=== PATIENT | male | born 1945 | race African-American/Black ===

== ENCOUNTER → 2024-03-31 14:15 | Outpatient (REF) | payer MEDICARE, SELFPAY | LOC: PAVMRI 14:15 | PROVIDERS: ATTENDING PHYSICIAN Specialist; FAMILY PHYSICIAN Internal Medicine | DX: M54.2 Cervicalgia (principal); M25.511 Pain in right shoulder | CPT/HCPCS: 72141; 73221 ==

== ENCOUNTER 2024-06-13 16:26 | Inpatient (IN) | payer MEDICARE, SELFPAY ==
[2024-06-13] VITALS (11 sets, daily range): BP systolic 117–149; BP diastolic 70–104; BMI 26.8
[2024-06-13 12:42] LABS: Hematocrit 42.7 % (39.0-52.0); Hemoglobin 14.8 g/dL (13.0-18.0); Mean Corp Hgb Conc. 34.7 g/dL (33.0-37.0); Mean Corpuscular Hgb 29.7 pg (27.0-31.0); Mean Corpuscular Volume 85.6 fL (80.0-94.0); Mean Platelet Volume 9.6 fL (7.4-10.4); Platelet Count 258 10^3/uL (130-400); Red Blood Cell Count 4.99 10^6/uL (4.70-6.10); Red Cell Dist. Width 13.5 % (11.5-14.5)
[2024-06-13 12:48] LABS: ALT (SGPT) 22 U/L (0-50); AST (SGOT) 37 U/L (17-59); Albumin 4.6 g/dl (3.5-5.0); Alkaline Phosphatase 100 U/L (38-126); Blood Urea Nitrogen 17 mg/dl (9-20); Calcium 9.6 mg/dl (8.4-10.2); Carbon Dioxide 28 mmol/L (22-30); Chloride 103 mmol/L (98-107); Estimated Creatinine Clearance 75 ml/min; Glucose 109 mg/dl (70-99); Sodium 139 mmol/L (135-145); Total Bilirubin 0.4 mg/dl (0.2-1.3); Total Protein 7.6 g/dl (6.3-8.2); eGFR > 60.00
[2024-06-13 13:04] LABS: Troponin I < 0.012 ng/ml
--- NOTE | 2024-06-13 13:21 | ED.GENMED ---
History of Present Illness
General
Chief Complaint: Chest Problem
Time Seen by Provider: 06/13/24 12:10
History of Present Illness
History of Present Illness:
79-year-old male with history of hypertension and diabetes presenting to the emergency department for multiple complaints. Patient reports for the past year he has been having substernal chest pain with exertion. Last night he had an episode where
pain was worse and he 'felt like he was having a heart attack'. He notes that he had an outpatient stress test 4 months ago through his PCP, reportedly normal. Pain is only present with exertion, denies pain at rest. Denies difficulty breathing.
Denies radiation of pain. Additionally notes that he has been having constipation for the past year. He has been using milk of magnesia, MiraLAX, stool softeners and has to strain to have a bowel movement. He is due for colonoscopy within the
year. Denies associate abdominal pain or vomiting. Additional complaint is right arm pain which has been going on for 7 months. Notes that he has had x-ray and MRI imaging, unremarkable, had cortisone injections by orthopedics. Pain is worse
with abduction. Denies numbness or tingling to the extremity or weakness. Additional complaint is left testicular pain which has been going on for 4 days. Denies any urinary complaints. Denies any injury to the testicular region. Denies
additional acute medical complaints
Past History
Past History
ED Past Medical History: HTN and Other (Insomnia, Sleep apnea)
ED Past Surgical History: Appendectomy
Social History
Tobacco: Non-smoker
Alcohol: Occasional
Drug: None
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
Living: other
Employment: Employed ([employer])
Family History
Family History: Other
Phy Exam
Physical Exam
Physical Exam:
General: Well-appearing, no clinical signs of dehydration, nontoxic and in no acute distress
HEENT: protecting airway
Neck: appears supple
CV: Normal heart rate, regular rhythm, no evidence of cyanosis
Resp: No accessory muscle use, no increased work of breathing, lungs clear to auscultation bilaterally
Abd: Soft and non-distended, no tenderness to palpation
Extremities: No deformities, no swelling, no erythema, pulses and sensation intact
Neuro: alert, no focal neurologic deficit
: No reproducible tenderness to the testicle, no swelling
Rectal: deferred
Psych: Normal affect
Skin: Intact
Scores
Heart Score for Chest Pain Patients
STEMI patient?: No
History: Moderately Suspicious
ECG: Nonspecific Repolarization
Age: >/= 65 years
Risk Factors: >/= 3 Risk Factors or History of CAD
Troponin: </= Normal Limit
Heart Score for Chest Pain Patients: 6
Heart Score Risk: 20.3% MACE over next 6 weeks
Course
Orders/Labs/Results
Orders:
Orders
06/13/24 Lunch
NPO
Allow oral meds: Yes
Allow clear liquids: No
06/13/24 11:51
ECG [Electrocardiogram (*1)] Urgent
Reason for Study: Chest Pain
EKG- Treatment ONCE
06/13/24 12:19
Complete Blood Count/With Diff Urgent
Comprehensive Metabolic Panel Urgent
Glycohemoglobin (HgbA1c) Urgent
Troponin I Urgent
06/13/24 12:38
Urinalysis Reflex To Culture Urgent
US Scrotum Urgent
Comment:
Reason For Exam: L-teticular pain
06/13/24 14:01
Echo 2D MMode Color/Doppler Routine
Reason for Study: Chest pain, abnormal EKG
06/13/24 14:20
Aspirin Chewable [Low Strength Aspirin] 324 mg PO NOW STA
06/13/24 14:41
Troponin I Routine
06/13/24 14:51
Add On- LAB Routine
Tests Added?: Hgba1c
06/13/24 15:00
EKG [Electrocardiogram (*1)] Routine
Reason for Study: Chest Pain
Comment: To be done with troponin at 15:00
06/14/24 06:00
Lipid Profile [Cardiovascular Evaluation] IN AM
Abnormal Lab Results
06/13/24
12:19
Neutrophils % 28.1 L %
(42.2-75.2)
Lymphocytes % 61.7 H %
(20.5-51.1)
Glucose 109 H mg/dl
(70-99)
06/13/24 12:19
06/13/24 12:19
Vital Signs
Initial and Last Documented VS:
Initial Vital Signs
Temp Pulse Resp BP Pulse Ox
98.5 F 71 20 144/83 99
06/13/24 11:47 06/13/24 11:47 06/13/24 11:47 06/13/24 11:47 06/13/24 11:47
Last Documented Vital Signs
Temp Pulse Resp BP Pulse Ox
98.5 F 72 21 144/83 97
06/13/24 11:47 06/13/24 13:45 06/13/24 13:45 06/13/24 11:47 06/13/24 13:45
MDM/Problems Addressed
MDM/Problems Addressed:
79-year-old male with history of hypertension hyperlipidemia presenting primarily for chest pain, and additional complaints of constipation, right arm pain, testicular pain. Vital signs are normal.
On exam, patient is well-appearing, no acute distress. Benign cardiac and pulmonary exam. On examination of the abdomen, no focal tenderness. No deformity to the right upper extremity, no neurovascular compromise, no erythema or warmth. No
significant abnormality to the testicular region. Regarding multiple complaints, primary complaint is chest pain. Patient without active chest pain, however concerning story, reports chest pain with exertion. Patient does have EKG changes from
prior as well as cardiac risk factors. For this reason we will obtain laboratory analysis including troponin. Regarding constipation, no tenderness to the abdomen without concern for any significant obstruction or blockage. Patient is due for a
colonoscopy in a year, which I advised he obtain to ensure no underlying malignancy. Regarding right upper extremity pain, no weakness, no neurovascular compromise. Recent MRI imaging, being followed by orthopedics. Do not feel patient requires
any advanced imaging or additional workup for his pain. Regarding testicular pain, will screen with scrotal ultrasound and urinalysis.
13:40 -given abnormal EKG and symptoms, did discuss cardiology. Cardiology MARBELLA to bedside. Initial troponin within normal limits.
14:55 - Discussed with cardiology, concern for chronic progressive angina, recommending catheterization today. Advising medicine admission with cardiac catheterization. Patient agreeable to plan.
*EKG
Interpreted by ED Provider?: Yes
EKG Intrepretation Date: 06/13/24
EKG Intrepretation Time: 13:25
Interpretation: abnormal
Comparison EKG: changes noted (02/18/18)
Heart Rate: 65
Rate: normal
Rhythm: sinus
[place]: normal axis
Interval: normal interval
QRS Pattern: normal QRS
Ischemia: other (ST changes V3-V4)
*Critical Care Note
Total Time (30-74mins, 75-104mins- exclusive of procedures): Not Applicable
ED Attending Note
-
Portions of this chart may have been created with voice recognition software.� Occasional wrong word or��sound alike� substitutions may have occurred due to the inherent limitations of voice recognition software.
Discharge Plan
Departure
Prescriptions:
No Action
amlodipine 5 mg Tablet
5 mg PO DAILY
Jardiance 10 mg Tablet
10 mg PO DAILY
lactulose [Constulose] 10 gram/15 mL solution
20 g PO BID Qty: 473 0RF
Referrals:
Oli Jeffery MD [Family Provider] -
Interventions
Interventions:
*Risk Screen - Suicide Last Done: 06/13/24 13:53
*General Assessment Last Done: 06/13/24 13:53
ED- Fall Risk Assessment Last Done: 06/13/24 13:35
*ED COVID-19 Vaccine History Last Done: 06/13/24 13:53
ED- Cardiac Assessment Last Done: 06/13/24 13:35
ED- Pulmonary Assessment Last Done: 06/13/24 13:35
Discharge Date and Time
Print Language: GREENLANDIC
[2024-06-13 13:27] LABS: % Basophils 0.6 % (0-2); % Eosinophils 1.4 % (0-6); % Lymphocytes 61.7 % (20.5-51.1); % Monocytes 8.2 % (1.7-9.3); % Neutrophils 28.1 % (42.2-75.2); Absolute Eosinophils 0.1 10^3/uL (0-0.7); Absolute Lymphocytes 3.1 10^3/uL (1.2-3.4); Absolute Monocytes 0.4 10^3/uL (0.1-0.6); Absolute Neutrophils 1.4 10^3/uL (1.4-6.5); Nucleated Red Blood Cells % 0 % (-)
--- NOTE | 2024-06-13 13:43 | CON.CAR ---
Addendum entered and electronically signed by Bridger Dumont MD 06/13/24 15:01:
I saw and examined the patient.
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 Symptoms are now limiting him from taking his walks. He had what he reports as a negative stress test in
[facility]. Given new EKG changes and progressive symptoms I do not favor another stress test or empiric medical therapy. I think he will benefit from cardiac cath and revascularization. I will be very surprised if he does not have
obstructive CAD. He has chronic left shoulder pain and constipation and several days of scrotal discomfort. I discussed the case in detail with Dr. Quintero who has kindly agreed to proceed to cath. Fortunately the patient has not eaten since
early this morning.
Original Note:
Consultation
Consultation Request
Date/Time Consultation Requested: 06/13/2024 13:30
Date/Time Consultation Performed: 06/13/2024 13:40
Requesting Provider: Dr. Dutton
Performing Provider: VALE Agosto for Dr. Dumont
Reason for Consultation: Abnormal EKG with chest pain
Medical History
-
Chief Complaint: Chest pain
History of Present Illness:
Fr. Alexis Tam is a 79-year-old male (formerly known to Dr. Shipley), with hypertension, dyslipidemia, NIDDM, and right outs who presented to the emergency department with chest pressure, right shoulder pain, and testicular pain. Cardiology was
consulted to evaluate his chest discomfort. He has midsternal anterior chest discomfort with exertional activities. This does not radiate. He denies associated symptoms of nausea, diaphoresis, and dizziness. He also presented endorsing
constipation and right arm pain.
Past Medical History
Past Medical History: HTN, Hypercholesterolemia and NIDDM
Past Surgical History: Appendectomy and Orthopedic
Social History
Tobacco: Non-Smoker
Drug: None
Personal: Single
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
Family History
Family History: Reviewed & Not Pertinent
Allergies / Home Medications
Allergy/AdvReac Type Severity Reaction Status Date / Time
No Known Allergies Allergy Verified 06/13/24 11:49
�Medication �Instructions �Recorded �Confirmed �Type
amlodipine 5 mg tablet 5 mg PO DAILY 06/01/23 06/01/23 History
empagliflozin 10 mg tablet 10 mg PO DAILY 06/01/23 06/01/23 History
(Jardiance)
lactulose 10 gram/15 mL oral 20 g (30 mL) PO BID #473 mL 08/11/23 Rx
solution (Constulose)
Review of Systems
-
History Source: Patient
All other systems: Negative unless noted
Constitutional: No Symptoms
EENT: No Symptoms
Respiratory: No Symptoms
Cardiac: Chest Pain
Abdomen/GI: Constipated
: Other (Testicular pain)
Musculoskeletal: Joint Pain (right shoulder)
Skin: No Symptoms
Neurological: No Symptoms
Endocrine: No Symptoms
Hematologic/Lymphatic: No Symptoms
Physical Exam
Vital Signs
Temp Pulse Resp BP Pulse Ox
98.5 F 71 20 144/83 99
06/13/24 11:47 06/13/24 11:47 06/13/24 11:47 06/13/24 11:47 06/13/24 11:47
Lab Results
06/13/24 12:19
06/13/24 12:19
Troponin I < 0.012 ng/ml 06/13/24 12:19
Physical Exam
General: Well Developed, Well Nourished, No Apparent Distress and Comfortable
HEENT: Normocephalic, Anicteric and Moist Mucous Membranes
Respiratory: Clear and Non Labored Respirations
Cardiac: S1/S2 and Regular Rhythm
Breast: Deferred by me
GI: Soft, Non Tender, Non Distended and Normal Bowel Sounds
Rectal: Deferred by Provider
Genito-urinary: No Costovertebral Tender
Musculoskeletal: No Clubbing, No Cyanosis and No Edema
Skin: Warm and Dry
Neuro: AO x 3
Hematologic/Lymphatic: No Lymphadenopathy
Psych: Calm
Impression / Plan
-
BACKGROUND: 79M with HTN, HLD, and diabetes who presented with exertional chest pressure, testicular pain, constipation, and right shoulder pain
Chest pressure
-Midsternal anterior chest pressure with exertional activities
-He endorses recent ETT but did not have any pain on the treadmill
-Initial troponin <0.012, EKG with anterior T wave abnormality
-Echocardiogram
-Ischemic evaluation timing to be determined
Testicular pain, per primary service
Constipation, per primary service
Right shoulder pain, cortisone shot given by orthopedics in December
Hypertension, stable on amlodipine
Dyslipidemia, fasting lipid panel in a.m.
Type 2 diabetes mellitus
Data Reviewed
-
EKG: Report Reviewed by me (Sinus rhythm, anterior T wave abnormality, rate 65)
Labs: Labs Reviewed by me
Old Records: Reviewed
[2024-06-13] MEDS: LOW STRENGTH ASPIRIN 324 MG PO (14:34)
[2024-06-13 15:30] LABS: Urine Albumin Negative (Neg - Trace); Urine Bilirubin Negative (Negative); Urine Character Clear (Clear); Urine Color Straw; Urine Glucose 3+ (Negative); Urine Ketone Negative (Negative); Urine Leukocyte Negative (Negative); Urine Nitrite Negative (Negative); Urine Occult Blood Negative (Negative); Urine Urobilinogen Negative (Neg - 1+)
--- NOTE | 2024-06-13 15:49 | HPS.HSE ---
Family Physician
-
Family Physician: Oli Jeffery MD
Chief Complaint
-
Chest pain
History of Present Illness
Patient is 79 years old male with history of hypertension and diabetes who presents to the emergency room with progressive exertional chest pain. Patient describes his chest pain as midsternal pressure-like worsening with exertion over the past few
months. Patient reports negative stress test recently at [facility]. He denies any syncope, palpitations. Pain does not radiate to the extremities. Patient reports pain in the right shoulder over the last few weeks with abnormal MRI and
recent orthopedic consult with steroid injection to the right shoulder with no significant relief of pain. In addition patient complains of persistent constipation. Denies any nausea or vomiting no other upper gastrointestinal symptoms. He has
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 In addition patient complains of a left sided scrotal discomfort.
Medical History
Past Medical History
Past Medical History: Reports HTN, Hypercholesterolemia and NIDDM; Denies CAD
Past Surgical History: Reports None
Social History
Tobacco: Non-smoker
Alcohol: None
Drug: None
Living: With Family
Family History
Family History: Not pertinent
Allergies / Home Medications
Allergies reflects when Allergies were last updated in [facility].
Home Medications with original date entered in [facility]
Allergy/Medication List:
Allergies
Allergy/AdvReac Type Severity Reaction Status Date / Time
No Known Allergies Allergy Verified 06/13/24 11:49
Home Medications
amlodipine 5 mg tablet 5 mg PO DAILY 06/01/23
empagliflozin 10 mg tablet (Jardiance) 10 mg PO DAILY 06/01/23
cholecalciferol (vitamin D3) 50 mcg (2,000 unit) tablet (Vitamin D3) 50 mcg PO NOON 06/13/24
finasteride 5 mg tablet 5 mg PO DAILY 06/13/24
peg 400-propylene glycol (PF) 0.4 %-0.3 % eye drops in a dropperette (Systane (PF)) 1 drp BOTH EYES Q6HPRN PRN dry eyes 06/13/24
therapeutic multivitamin 1 tab PO NOON 06/13/24
vitamin B complex 1 tab PO NOON 06/13/24
Review of Systems
-
A 12 point ROS was completed and negative except as noted: Yes
Cardiac: Reports See HPI
Abdomen/GI: Reports See HPI
: Reports See HPI
Physical Exam
Vital Signs
Vital Signs
Temp Pulse Resp BP Pulse Ox
98.5 F 63 15 128/99 97
06/13/24 11:47 06/13/24 15:00 06/13/24 15:00 06/13/24 15:00 06/13/24 15:00
Physical Exam
General: Well Developed, Well Nourished and No Apparent Distress
HEENT: NormoCephalic, Moist mucous membranes and Atraumatic
Respiratory: Clear
Cardiac: S1/S2 and Regular Rhythm; No Murmur or Rub
GI: Soft, Non Tender, Non Distended and Normal Bowel Sounds; No Organomegaly
Rectal: Deferred by Provider
Musculoskeletal: No Clubbing, No Cyanosis and No Edema
Skin: No Rash
Neuro: Nonfocal/grossly intact
Laboratory Results
-
06/13/24 12:19
06/13/24 12:19
Laboratory Results
Total Bilirubin 0.4 mg/dl (0.2-1.3) 06/13/24 12:19
AST 37 U/L (17-59) 06/13/24 12:19
ALT 22 U/L (0-50) 06/13/24 12:19
Alkaline Phosphatase 100 U/L (38-126) 06/13/24 12:19
Troponin I Cancelled 06/13/24 14:41
Impression/Plan
-
IMPRESSION:
Exertional chest pain with clinical concern for acute coronary syndrome, accelerated angina.
Right shoulder pain.
Left scrotal discomfort
Constipation
Other conditions:
Essential hypertension
Diabetes
Dyslipidemia.
BPH.
PLAN:
Exertional chest pain
ECG with lateral T wave abnormalities
Troponin negative.
Clinical concern for accelerated angina
Cardiology input appreciated
Echocardiogram with
Urgent cardiac catheterization
Lipid profile
Essential hypertension
On amlodipine prior to presentation
Monitor blood pressure trend
Chronic constipation
Most recent colonoscopy with adenomatous polyps.
Due for repeat.
Benign abdominal exam
Not anemic.
Initiate MiraLAX and Colace.
Will need outpatient follow-up
Right shoulder pain
Recent MRI with partial-thickness supraspinatus tendon tearing with underlying tendinosis of the rotator cuff tendons
Status post steroid injection
Follow-up with orthopedics
Left scrotal discomfort
Ultrasound consistent with left-sided varicocele
BPH on finasteride.
Reports urinary retention.
Check UA.
Bladder scan.
Continue finasteride and consider addition of Flomax
[2024-06-13 16:33] LABS: Glycohemoglobin (HgbA1c) 6.8 % (4.0-5.6)
[2024-06-13] MEDS: MIRALAX PO (17:03)
--- NOTE | 2024-06-13 17:04 | ITS.CL.CATH ---
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
Cardiac Catheterization
Procedure Report:
CARDIAC CATHETERIZATION REPORT
Date of Procedure: 06/13/2024
Referring: Dr. Paramjit Dumont MD
INDICATION: stable angina, abnormal ECG
PROCEDURE:
1. Left heart catheterization.
2. Coronary angiography.
ACCESS:
6 [place] right radial artery
CATHETERS:
1. 6 [place] JR4
2. 6 [place] JL3
HEMODYNAMIC DATA
LV 117/2 (EDP 10) mmHg
AO 123/81 (100) mmHg
CORONARY ANGIOGRAPH
Dominance: right
LM: short and normal
LAD: large vessel that gives rise to a large D1 and moderate-caliber D2 before wrapping around the apex. There is a severe 99% stenosis in the mid-LAD involving the takeoff of D2. The D2 itself has 80-90% disease proximally with moderate disease
extending at least 20-30 mm distally. There is TIMI2 flow in the distal LAD. Some [id number] filling is noted in the apical LAD.
LCx: large vessel that gives rise to a large OM1 and small OM2. There are trivial luminal irregularities.
RCA: large vessel that gives rise to a moderate-caliber RPDA and small RPL system. There are mild luminal irregularities.
Closure Device: TR band
Radiation (mGy): 288.14
DAP (cm2.Gy): 26.6776
Fluoroscopy time (minutes): 2.9
CONCLUSIONS
1. Severe single vessel coronary artery disease in a right dominant system
2. Normal LV filling pressure and no aortic stenosis.
RECOMMENDATIONS:
1. Expectant management after cardiac catheterization via right radial approach
2. Echocardiogram
3. Aggressive secondary prevention or coronary artery disease with ASA and high intensity statin
4. Medical treatment of chronic stable angina with maximally tolerated anti-anginal therapy
5. Consideration for revascularization of LAD/diagonal if continued angina despite optimal medical therapy. This would best be accomplished with a crush-based dedicated bifurcation technique.
Copy to: Dr. Paramjit Dumont
Signed: Migue Quintero MD, PhD
[2024-06-13 17:53] LABS: Glucose - Point of Care 78 mg/dl (70-99)
[2024-06-13] MEDS: LIPITOR 80 MG PO (18:35)
[2024-06-13 18:43] LABS: HDL Cholesterol 50 mg/dl; LDL Cholesterol, Calculated 77 mg/dl; Total Cholesterol 142 mg/dl (50-199); Triglyceride 77 mg/dl (10-149); Very Low Density Lipoprotein 15 mg/dl (0-30)
[2024-06-13] MEDS: COLACE 100 MG PO (19:30)
--- NOTE | 2024-06-13 20:37 | PTCARENOTE ---
Pt received at change of shift. Pt.seen and assessed in room. Pt. AOx3 VS WNL. Tele reading NSR. TR band removed at 1925 with no bleeding, gauze and tegaderm placed. Education taught about right extremity limitations. No complaints of pain at this
time. Continuing to monitor the pt.
[2024-06-13 21:28] LABS: Glucose - Point of Care 87 mg/dl (70-99)
[2024-06-14] VITALS: PULSE 64
[2024-06-14 03:15] VITALS: PULSE 61
[2024-06-14 04:32] VITALS: BP 135/75
[2024-06-14 04:42] VITALS: BMI 26.1
[2024-06-14 05:18] LABS: % Basophils 0.4 % (0-2); % Eosinophils 1.9 % (0-6); % Immature Granulocytes 0.2 % (0-0.5); % Neutrophils 40.5 % (42.2-75.2); Absolute Eosinophils 0.1 10^3/uL (0-0.7); Absolute Lymphocytes 2.6 10^3/uL (1.2-3.4); Absolute Monocytes 0.4 10^3/uL (0.1-0.6); Absolute Neutrophils 2.1 10^3/uL (1.4-6.5); Hematocrit 44.7 % (39.0-52.0); Hemoglobin 15.5 g/dL (13.0-18.0); Mean Corp Hgb Conc. 34.7 g/dL (33.0-37.0); Mean Corpuscular Hgb 29.9 pg (27.0-31.0); Mean Corpuscular Volume 86.3 fL (80.0-94.0); Mean Platelet Volume 9.3 fL (7.4-10.4); Nucleated Red Blood Cells % 0 % (-); Platelet Count 229 10^3/uL (130-400); Red Blood Cell Count 5.18 10^6/uL (4.70-6.10); Red Cell Dist. Width 13.4 % (11.5-14.5); White Blood Cell Count 5.2 10^3/uL (4.8-10.8)
[2024-06-14 05:40] LABS: Blood Urea Nitrogen 15 mg/dl (9-20); Calcium 9.5 mg/dl (8.4-10.2); Carbon Dioxide 24 mmol/L (22-30); Chloride 105 mmol/L (98-107); Estimated Creatinine Clearance 75 ml/min; Glucose 77 mg/dl (70-99); Potassium 3.9 mmol/L (3.5-5.1); Sodium 138 mmol/L (135-145); eGFR > 60.00
[2024-06-14 07:14] VITALS: BP 135/81
[2024-06-14 07:19] LABS: Glucose - Point of Care 75 mg/dl (70-99)
--- NOTE | 2024-06-14 08:08 | W.PN.CD ---
Today's Communication / Plan
-
will assess tolerance to imdur/metop this AM, then ok for discharge home
Impression / Plan
-
BACKGROUND: 79M with HTN, HLD, and diabetes who presented with exertional chest pressure, found to have severe LAD/diagonal disease on coronary angiography.
ACS
CAD
-Midsternal anterior chest pressure with exertional activities for a year
-troponin negative, ECG with anterior TWIs
-Echocardiogram with normal EF - together with normal troponin suggests chronicity of LAD lesion with time for collateral formation and compensation
-cath with severe mid-LAD stenosis involving diagonal branch with apical LAD supplied by left to left collaterals, radial site cdi
-asa, high intensity statin
-plan for aggressive anti-anginal medication with PCI to LAD/diag if fails medical therapy - will start low dose imdur and metoprolol this AM, monitor for tolerance, and plan to discharge in afternoon with outpatient follow up with Dr. Dumont to
further titrate medications
Hypertension, stable on amlodipine, will monitor with addition of metop/imdur
Dyslipidemia, LDL 77, will initiate high intensity statin for goal LDL<70
Type 2 diabetes mellitus, cont. Jardiance as outpatient
Physical Exam
Vital Signs/Labs
Vital Signs
Temp Pulse Resp BP Pulse Ox
36.6 C 70 18 135/75 99
06/14/24 07:11 06/14/24 05:45 06/14/24 07:11 06/14/24 04:32 06/14/24 07:11
06/13/24 06/14/24 06/15/24
06:59 06:59 06:59
Actual Weight 77.9 kg
06/14/24 04:39
06/14/24 04:39
Triglycerides Cancelled 06/13/24 16:15
LDL Cholesterol, Calc Cancelled 06/13/24 16:15
VLDL Cholesterol, Calc Cancelled 06/13/24 16:15
HDL Cholesterol Cancelled 06/13/24 16:15
LAB Results
06/13/24 06/13/24 06/13/24
12:19 14:41 15:09
Troponin I < 0.012 Cancelled Cancelled
Physical Exam
Constitutional: No acute distress, Comfortable and Confusion
Cardiovascular: Rhythm & rate is regular, Pedal edema is absent and JVD pressure is normal
Respiratory: Respiratory effort normal
GI: Soft and Distention absent
Neuro/Psych: Alert, Oriented and AO x 3
Other: Cath Site (cdi)
Data Reviewed
-
Date of Service: June 14, 2024
Medical Decision Making: Reviewed Test Results and Test Interpretation
EKG: Tracing Personally Visualized and interpreted
Echo: Tracing Personally Visualized and interpreted
Labs: Labs Reviewed by me
[2024-06-14] MEDS: IMDUR (EXTENDED RELEASE) 30 MG PO (08:26)
[2024-06-14] MEDS: JARDIANCE 10 MG PO (08:26)
[2024-06-14] MEDS: COLACE 100 MG PO (08:26)
[2024-06-14] MEDS: LOW STRENGTH ASPIRIN 81 MG PO (08:29)
[2024-06-14] MEDS: NORVASC 10 MG PO (08:29)
[2024-06-14] MEDS: PROSCAR 5 MG PO (08:29)
[2024-06-14] MEDS: MIRALAX 17 GRAMS PO (08:29)
[2024-06-14] MEDS: TOPROL XL 12.5 MG PO (08:30)
--- NOTE | 2024-06-14 09:46 | CM ---
Reviewed chart. Met with Mr. Espinoza to review discharge plans. He states prior to admission he resides alone in a fourth floor condo with an elevator. He states he prefers to use the stairs. He states prior to admission he was independent with
ambulation and adls. He states he has a CPAP Machine at home and no other DME in the home. He states he has a prescription plan and uses [facility]. Medical work-up in progress. The discharge plan is to return home when medically stable.
--- NOTE | 2024-06-14 11:48 | W.DS.TRANS ---
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
-
Discharge Instructions:
Discharge Diagnosis/Procedures cardiac catheterization
CAD/accelerated angina
Diet Low Cholesterol,Diabetic, Carb Controlled
Instructions:
Stand-Alone Forms: DC Instructions- Cath/EP Lab
Changes to Home Medications: Yes
Discharge Medications:
DC Medications w/original date entered in [email or web address]
empagliflozin 10 mg tablet (Jardiance) 10 mg PO DAILY 06/01/23
cholecalciferol (vitamin D3) 50 mcg (2,000 unit) tablet (Vitamin D3) 50 mcg PO NOON 06/13/24
finasteride 5 mg tablet 5 mg PO DAILY 06/13/24
peg 400-propylene glycol (PF) 0.4 %-0.3 % eye drops in a dropperette (Systane (PF)) 1 drp BOTH EYES Q6HPRN PRN dry eyes 06/13/24
therapeutic multivitamin 1 tab PO NOON 06/13/24
vitamin B complex 1 tab PO NOON 06/13/24
amlodipine 10 mg tablet 10 mg PO DAILY #30 tabs 06/14/24
aspirin 81 mg chewable tablet 81 mg PO DAILY #30 tabs 06/14/24
atorvastatin 80 mg tablet 80 mg PO QPM #30 tabs 06/14/24
isosorbide mononitrate 30 mg tablet,extended release 24 hr 30 mg PO DAILY #30 tabs 06/14/24
metoprolol succinate 25 mg tablet,extended release 24 hr 12.5 mg (1/2 x 25 mg) PO DAILY #30 tabs 06/14/24
nitroglycerin 0.4 mg sublingual tablet 0.4 mg sublingual [id number] PRN chest pain #30 tabs 06/14/24
polyethylene glycol 3350 17 gram oral powder packet (HealthyLax) 17 g PO DAILY #100 ea 06/14/24
Home Medication Changes
All of above including increased amlodipine.
Pending Results: No
[2024-06-14 11:50] VITALS: BP 114/70
--- NOTE | 2024-06-14 14:30 | PTCARENOTE ---
Pt discharged, wanted to drive himself home. Explained to Pt that he was not to drive for 24 hrs post sedation. Pt expressed understanding. He agrees to have a friend drive him home.
== END 2024-06-14 15:01 | disposition home or self-care (01) | DRG 287 ==
LOC: IVU 16:26
PROVIDERS: Student in an Organized Health Care Education/Training Program; ADMITTING PHYSICIAN Internal Medicine; CONSULT PHYSICIAN Internal Medicine Cardiovascular Disease; EMERGENCY PHYSICIAN Student in an Organized Health Care Education/Training Program; FAMILY PHYSICIAN Internal Medicine
PROC: B2111ZZ Fluoroscopy of Multiple Coronary Arteries using Low Osmolar Contrast (ICD-10-PCS; 2024-06-13)
PROC: 4A023N7 Measurement of Cardiac Sampling and Pressure, Left Heart, Percutaneous Approach (ICD-10-PCS; 2024-06-13)
DX: I25.118 Atherosclerotic heart disease of native coronary artery with other forms of angina pectoris (principal); I24.9 Acute ischemic heart disease, unspecified; I10 Essential (primary) hypertension; E11.9 Type 2 diabetes mellitus without complications; S46.811A Strain of other muscles, fascia and tendons at shoulder and upper arm level, right arm, initial encounter; M25.511 Pain in right shoulder; I86.1 Scrotal varices; N50.82 Scrotal pain; E78.5 Hyperlipidemia, unspecified; K59.09 Other constipation; R33.8 Other retention of urine; N40.1 Benign prostatic hyperplasia with lower urinary tract symptoms; G47.30 Sleep apnea, unspecified; E78.00 Pure hypercholesterolemia, unspecified; G47.09 Other insomnia; M79.601 Pain in right arm; Z79.899 Other long term (current) drug therapy; Z86.010 Personal history of colon polyps
CPT/HCPCS: 76870; 80048; 80053; 80061; 81003; 82962; 83036; 84484; 85025; 93005; 93306; 93458; 93976; 94660; 99285; C1894; Q9967

== ENCOUNTER 2024-09-12 06:18 | Day surgery (SDC) | payer MEDICARE, SELFPAY ==
[2024-09-12] VITALS (16 sets, daily range): BP systolic 120–160; BP diastolic 62–86
[2024-09-12 07:11] LABS: Hematocrit 46.2 % (39.0-52.0); Hemoglobin 15.8 g/dL (13.0-18.0); Mean Corp Hgb Conc. 34.2 g/dL (33.0-37.0); Mean Corpuscular Volume 87.7 fL (80.0-94.0); Mean Platelet Volume 9.9 fL (7.4-10.4); Platelet Count 181 10^3/uL (130-400); Red Blood Cell Count 5.27 10^6/uL (4.70-6.10); Red Cell Dist. Width 13.6 % (11.5-14.5); White Blood Cell Count 5.6 10^3/uL (4.8-10.8)
[2024-09-12 07:13] LABS: Glucose - Point of Care 114 mg/dl (70-99)
[2024-09-12] MEDS: LOW STRENGTH ASPIRIN 81 MG PO (07:26)
[2024-09-12] MEDS: PLAVIX 600 MG PO (07:39)
[2024-09-12 08:27] LABS: ACT-LR - POC 277 Seconds (116-155)
[2024-09-12 09:39] LABS: ACT-LR - POC 371 Seconds (116-155)
[2024-09-12 10:02] LABS: ACT-LR - POC > 397 Seconds (116-155)
[2024-09-12 10:02] LABS: ACT-LR - POC > 397 Seconds (116-155)
[2024-09-12 10:08] LABS: ACT-LR - POC 374 Seconds (116-155)
[2024-09-12 11:13] LABS: ACT-LR - POC 281 Seconds (116-155)
[2024-09-12] MEDS: NSS 1000 IV (12:20)
[2024-09-12 12:39] LABS: Glucose - Point of Care 122 mg/dl (70-99)
--- NOTE | 2024-09-12 14:14 | PTCARENOTE ---
Report received from Mckayla from [facility]. Pts vitals stable on arrival to unit. SB on the monitor in the 50's. Pt with no complaints of pain or discomfort. R band intact with no hematoma noted. Advised pt bed of rest orders and right arm
restrictions. Call amaral given to patient. Friend Dave in the room visiting.
--- NOTE | 2024-09-12 14:56 | CM ---
Chart reviewed. Patient is independent of ADLS, lives alone in a apartment, elevator access, 0 DME. Plan is for the patient to return home. CM to follow
[2024-09-12 15:53] LABS: ACT-LR - POC > 397 Seconds (116-155)
--- NOTE | 2024-09-12 16:31 | PTCARENOTE ---
Aprox 1510 R band removed from right radial. 2x2 and tegaderm placed. No oozing or hematoma noted.
--- NOTE | 2024-09-12 17:21 | ITS.CL.PN ---
Denitrator - Procedure Note
Procedure
Procedure Note:
CARDIAC CATHETERIZATION REPORT
Date of Procedure: 09/12/2024
Indication: CCS Class III angina despite maximal medical therapy
PROCEDURE:
1. Left heart catheterization
2. Coronary angiography
3. IVUS of LAD
4. PCI with DAVID to LAD SUPERVISOR WHITE SUGAR
5. PCI with DAVID to D2
ACCESS: 7 [place] right radial artery (closed with TR band)
CATHETERS: 7 [place] EBU 3.5 guide catheter
HEMODYNAMIC DATA (mmHg)
LV 128/8 (EDP 22)
AO 131/68 (mean 89)
CORONARY ANGIOGRAPHY
Dominance: right
LM: large with minimal disease
LAD: large vessel giving rise to a large D1 and moderate caliber D2 before wrapping around the apex. There is a 100% stenosis in the mid-LAD just after the trifurcation of the dominant septal branch, the takeoff of the D2, and the continuation of
the LAD. The distal vessel appears to fill via bridging collaterals with evidence of retrograde flow at the distal cap. There is DORI 1 flow in the distal LAD. The SUPERVISOR WHITE SUGAR is short and straight without significant calcification but with ambiguous
proximal CAP (J-SUPERVISOR WHITE SUGAR 1). The D2 has a long 80% stenosis proximally with significant calcification.
LCx: large vessel giving rise to one dominant marginal branch
INTERVENTIONS - PCI to the LAD and D2
The left main was engaged with a 7F EBU 3.5 guide catheter. The decision was made to perform dedicated bifurcation stenting of the LAD/D2. A Runthrough wire was placed in the large septal as a cherelle wire but abandoned due to obstruction of distal
LAD flow. Wiring of the LAD was attempted with both the Runthrough wire and a Whisper wire without success. A 6F GuideLiner was inserted to allow lower volume contrast injections and add support. A Turnpike LP microcatheter was placed over the
Whisper wire, and with some difficulty, the Whisper wire was able to successfully cross the lesion. The wire was advanced into the distal LAD, followed by contrast injection to ensure intraluminal positioning. A Runthrough wire was placed in the D2.
Initial lesion preparation of the LAD was performed with serial inflation of a 2.0x12 balloon with full expansion. Angiography now demonstrated brisk DORI 3 flow to the distal LAD. Initial lesion preparation of the D2 was then attempted, but 2.0,
1.5, and 1.2 mm balloons were unable to cross the diagonal branch lesion, even with excellent GuideLiner support. Using the 1.2 mm balloon, angioplasty was performed at the proximal cap of the lesion to facilitate subsequent balloon passage without
success. Attempts were made to advance a cherelle wire down the D2 to facilitate wire cutting technique but due to dissection formation the second wire could not be advanced. Atherectomy was considered but would have required giving up the LAD wire and
would have been higher risk in the setting of vessel dissection in the D2. There remained DORI 3 flow in the D2, so a decision was made to covert to a provisional approach with rescue of the diagonal if needed. IVUS was performed of the LAD
demonstrating a 3.25 mm distal reference vessel and 4.5 mm proximal reference vessel with non-concentric calcification. The LAD was stented with a 3.5x30 mm Sorin Antlers DAVID DAVID taken to 12 josiane, followed by slight withdrawal of the stent balloon
and inflation to 16 josiane. POT was then performed with a 4.25x12 mm NC taken to 20 josiane. The diagonal still had TIMI3 flow but looked terrible with high grade stenosis and dissection proximally. The trapped D2 protection wire was removed. With
considerable difficulty, a fresh Whisper wire was used to rewire the D2 through stent struts. Surprisingly, the 1.2 mm balloon was then able to cross the stent struts and advanced distally past the lesion. The lesion was then serially dilated with
the 1.2 mm balloon, followed by a 2.0 mm balloon. A decision was made to perform TAP stenting of the diagonal. A 2.0x26 mm Sorin Antlers DAVID was advanced to the diagonal with minimal protrusion into the LAD. A 3.5x12 mm compliant balloon as advanced
distally over the LAD wire. The diagonal stent was deployed at nominal pressure, after which both the stent balloon and the 3.5 mm LAD balloon were pulled back to perform KBI with simultaneous synchronized inflation and deflation. Angiography
demonstrated an excellent result. IVUS of the LAD was performed and demonstrated slight undersizing of the proximal stent. POT was then performed with a 4.5x8 mm NC balloon. Final angiographic result was outstanding. The wire and guide were removed
and and a TR band placed. Due to high contrast usage, the patient was admitted for overnight observation and hydration.
RADIATION:
Radiation dose (mGy): 2589
DAP (cm2.Gy): 272.9
Fluoroscopy time (minutes): 75.8
CONCLUSIONS:
1. Severe single vessel coronary artery disease with LAD/D2 bifurcation disease including LAD SUPERVISOR WHITE SUGAR with DORI 1 distal flow and high grade D2 stenosis
2. Mildly elevated LV filling pressure and no coroanry artery disease
3. Successful IVUS guided provisional PCI of the LAD SUPERVISOR WHITE SUGAR with rescue TAP stenting of the D2 side branch
RECOMMENDATIONS:
1. Expectant management after cardiac catheterization via right radial
2. Admit for hydration and monitoring of renal function. Give 125 cc/hr for 8 hours
3. DAPT with ASA/Plavix for minimum 6 months and 1 year if tolerated (given bifurcation stenting and long stent lengths)
3. Aggressive secondary prevention of CAD and risk factor modification
4. Cardiac rehab
Signed: Migue Quintero MD, PhD
[2024-09-12] MEDS: LIPITOR 80 MG PO (21:42)
[2024-09-12] MEDS: PROSCAR 5 MG PO (21:42)
[2024-09-13 02:51] VITALS: BP 128/77
[2024-09-13 05:31] LABS: Hematocrit 44.4 % (39.0-52.0); Hemoglobin 15.2 g/dL (13.0-18.0); Mean Corp Hgb Conc. 34.2 g/dL (33.0-37.0); Mean Corpuscular Hgb 30.2 pg (27.0-31.0); Mean Corpuscular Volume 88.1 fL (80.0-94.0); Mean Platelet Volume 10.1 fL (7.4-10.4); Platelet Count 173 10^3/uL (130-400); Red Blood Cell Count 5.04 10^6/uL (4.70-6.10); Red Cell Dist. Width 13.5 % (11.5-14.5); White Blood Cell Count 7.3 10^3/uL (4.8-10.8)
[2024-09-13 05:54] LABS: Blood Urea Nitrogen 9 mg/dl (9-20); Calcium 9.2 mg/dl (8.4-10.2); Carbon Dioxide 28 mmol/L (22-30); Chloride 103 mmol/L (98-107); Glucose 118 mg/dl (70-99); HDL Cholesterol 44 mg/dl; LDL Cholesterol, Calculated 33 mg/dl; Potassium 3.8 mmol/L (3.5-5.1); Sodium 142 mmol/L (135-145); Total Cholesterol 92 mg/dl (50-199); Triglyceride 79 mg/dl (10-149); Very Low Density Lipoprotein 15 mg/dl (0-30); eGFR > 60.00
--- NOTE | 2024-09-13 07:42 | W.PN.CD ---
Today's Communication / Plan
-
discharge planning
Impression / Plan
-
Mr. Espinoza is a 79 year old man with HTN, HLD, diabetes, and coronary artery disease with CCS class III angina despite optimal medical therapy, now POD 1 s/p PCI to the LAD/diagonal. He was admitted overnight for observation given length of
procedure and contrast usage.
He received 1L post op IV fluids overnight.
Labs today notable for stable CBC with Hb 15.2, stable BMP with Cr 0.8. LDL is 33 on this admission. ECG stable with SR and 1st degree AVB.
BP well controlled.
Tele SR.
No complaints. No angina walking.
# CAD - s/p PCI LAD/diag with excellent result
# HLD
- DAPT with ASA/plavix for 6-12 months then lifetime asa
- cont. metop for now, will discontinue outpatient if no further anginal sx
- cont. atorva 80
- discontinue isosorbide
# HTN
- cont. amlodipine
# DM
- cont. dapa
Discharge today with cardiac rehab and plan for close outpatient follow up.
Physical Exam
Vital Signs/Labs
Vital Signs
Temp Pulse Resp BP Pulse Ox
36.9 C 61 16 128/77 97
09/13/24 02:54 09/13/24 02:51 09/12/24 23:46 09/13/24 02:51 09/13/24 02:54
09/13/24 04:39
09/13/24 04:39
Triglycerides 79 mg/dl (10-149) 09/13/24 04:39
LDL Cholesterol, Calc 33 mg/dl 09/13/24 04:39
VLDL Cholesterol, Calc 15 mg/dl (0-30) 09/13/24 04:39
HDL Cholesterol 44 mg/dl 09/13/24 04:39
Physical Exam
Constitutional: No acute distress
Cardiovascular: Rhythm & rate is regular, Pedal edema is absent, JVD pressure is normal, Systolic murmur absent and Diastolic murmur absent
Respiratory: Respiratory effort normal, Lungs clear to auscul. and Wheeze Absent
Neuro/Psych: AO x 3
Data Reviewed
-
Date of Service: September 13, 2024
Medical Decision Making: Reviewed Test Results
EKG: Tracing Personally Visualized and interpreted
Labs: Labs Reviewed by me
[2024-09-13 08:12] VITALS: BP 136/77
[2024-09-13] MEDS: PLAVIX 75 MG PO (08:53)
[2024-09-13] MEDS: TOPROL XL 50 MG PO (08:53)
[2024-09-13] MEDS: FARXIGA 10 MG PO (08:53)
[2024-09-13] MEDS: LOW STRENGTH ASPIRIN 81 MG PO (08:54)
[2024-09-13] MEDS: NORVASC 10 MG PO (08:54)
--- NOTE | 2024-09-13 09:32 | W.DS.TRANS ---
DC Summary - Spring Encaser
-
Discharge Instructions:
Discharge Diagnosis/Procedures Angioplasty and stent x1 to Left Anterior
Descending artery, and x1 to Diagonal artery
Diet Low Cholesterol
Driving Restrictions No driving for 24 hours
Other Services Cardiac Rehab
Instructions:
Stand-Alone Forms: DC Instructions- Cath/EP Lab
Changes to Home Medications: Yes
Discharge Medications:
DC Medications w/original date entered in [facility]
empagliflozin 10 mg tablet (Jardiance) 10 mg PO DAILY 06/01/23
finasteride 5 mg tablet 5 mg PO HS 06/13/24
peg 400-propylene glycol (PF) 0.4 %-0.3 % eye drops in a dropperette (Systane (PF)) 1 drp BOTH EYES [id number] PRN dry eyes 06/13/24
amlodipine 10 mg tablet 10 mg PO DAILY #30 tabs 06/14/24
aspirin 81 mg chewable tablet 81 mg PO DAILY #30 tabs 06/14/24
nitroglycerin 0.4 mg sublingual tablet 0.4 mg sublingual [id number] PRN chest pain #30 tabs 06/14/24
Magnesium Glycinate 240mg 2 cap PO DAILY 09/12/24
ascorbic acid (vitamin C) 1,000 mg tablet (Vitamin C) 1,000 mg PO DAILY 09/12/24
atorvastatin 80 mg tablet 80 mg PO HS 09/12/24
cholecalciferol (vitamin D3) 125 mcg (5,000 unit) tablet (Vitamin D3) 125 mcg PO DAILY 09/12/24
cyanocobalamin (vitamin B-12) 1,000 mcg tablet (Vitamin B-12) 1,000 mcg PO DAILY 09/12/24
ibuprofen 200 mg tablet (Advil) 400 mg PO Q6H PRN pain 09/12/24
metoprolol succinate 50 mg tablet,extended release 24 hr 50 mg PO DAILY 09/12/24
multivit,calcium,min-folic acid 240 mcg-D3 25 mcg-lycop 300 mcg tablet (One A Day Men Complete) 1 tab PO DAILY 09/12/24
turmeric root extract 500 mg capsule 2,000 mg PO DAILY 09/12/24
vitamin B complex 1 tab PO DAILY 09/12/24
zinc 50 mg tablet 50 mg PO DAILY 09/12/24
clopidogrel 75 mg tablet 75 mg PO DAILY #90 tabs 09/13/24
Home Medication Changes
new to plavix
Pending Results: No
[2024-10-07 10:17] LABS: ACT-LR - POC 244 Seconds (116-155)
== END 2024-09-13 11:06 | disposition home or self-care (01) ==
LOC: CATH 06:18
PROVIDERS: Nurse Practitioner; ATTENDING PHYSICIAN Student in an Organized Health Care Education/Training Program
DX: I25.119 Atherosclerotic heart disease of native coronary artery with unspecified angina pectoris (principal); I25.84 Coronary atherosclerosis due to calcified coronary lesion; I25.82 Chronic total occlusion of coronary artery; I10 Essential (primary) hypertension; E11.9 Type 2 diabetes mellitus without complications; E78.5 Hyperlipidemia, unspecified; Z79.899 Other long term (current) drug therapy; Z79.84 Long term (current) use of oral hypoglycemic drugs; Z79.82 Long term (current) use of aspirin
CPT/HCPCS: 92978; 80048; 80061; 82962; 85027; 85347; 93005; 93458; C1725; C1753; C1769; C1874; C1887; C1894; C9601; C9607; Q9967